=== PATIENT | male | born 1955 | race Two or more races ===

== ENCOUNTER 2020-07-31 12:41 | Emergency (ER) | payer MEDICARE ==
[~2020-07-31] VITALS: Ht 172.7 cm; Wt 72.8 kg
--- NOTE | 2020-07-31 13:15 | NUR ---
LATE ENTRY FOR 1315: PT PRESENTS TO ED WITH C/O COUGH AND DIARRHEA X 3 DAYS, SOB STARTING TODAY. PT IS A&O, RESPS EVEN AND UNLABORED, ABLE TO SPEAK IN FULL SENTENCES WITHOUT DIFFICULTY. PT PLACED ON ALL MONTIORS, CALL LIGHT IN REACH. AWAITING MD AND ORDERS.
[2020-07-31] MEDS ORDERED: CEFTRIAXONE PMX 1GM/50ML 50 ML IVPB ONE (13:30)
[2020-07-31] MEDS ORDERED: AZITHROMYCIN 500 MG in SODIUM CHLORIDE 0.9% 250 ML IV ONE (13:30)
--- NOTE | 2020-07-31 13:52 | NUR ---
pt's son's name is aron, phone [phone], number provided to call when pt is ready for pickup.
[2020-07-31] MEDS ORDERED: SODIUM CHLORIDE FLUSH 10ML SYR IVF ONE (14:00)
[2020-07-31] MEDS ORDERED: CEFTRIAXONE PMX 1GM/50ML 50 ML ONE (14:04)
--- NOTE | 2020-07-31 14:06 | NUR ---
PT MEETING SIRS CRITERIA OF TACHYCARDIA, TACHYPNEA AND PNEUMONIA PER URGENT CARE XRAY VISUAL DESIGN LEAD TODAY. SECOND BLOOD CULTURE ORDERED. PIV PLACED, BLOOD CX DRAWN WITH PIV START. BLOOD CX ALREADY DRAWN BY LAB. LAB NOTIFIED BLOOD CX FROM PIV START IS AT BEDSIDE. PT IS A&O, RESPS EVEN AND UNLABORED. SINUS TACH ON CARDIAC MONTIOR, NO ECTOPY NOTED. PT IS 92% AT THE LOWEST WHEN MONITORED ON ROOM AIR BY THIS RN, INFORMED. PT PLACED ON OXYGEN AT 4L/MIN BY MD FLEMING FOR PT COMFORT. INFORMED PT HAS C/O SOB ON ARRIVAL, PER MD NO EKG INDICATED AT THIS TIME.
[2020-07-31 14:09] LABS: BASOPHILS % (AUTO) 0 % (0-1); EOSINOPHILS % (AUTO) 0 % (1-7); LYMPHOCYTES % (AUTO) 5 % (22-44); MEAN CORPUSCULAR HEMOGLOBIN 27.8 pg (27.5-34.5); MEAN CORPUSCULAR HGB CONC 33.2 g/dL (33.2-36.2); MEAN PLATELET VOLUME 7.8 fL (7.4-10.4); MONOCYTES % (AUTO) 4 % (2-9); NEUTROPHILS % (AUTO) 91 % (42-75); PLATELET COUNT 227 x10^3/uL (130-400); RED BLOOD COUNT 4.93 x10^6/uL (4.38-5.82)
[2020-07-31 14:12] LABS: ALBUMIN 2.9 g/dL (3.4-5.0); ANION GAP 8 mmol/L (5-15); CALCIUM 8.8 mg/dL (8.5-10.1); CHLORIDE 103 mmol/L (98-107); CREATININE 0.99 mg/dL (0.7-1.3)
[2020-07-31 14:17] LABS: MD NO
--- NOTE | 2020-07-31 14:20 | NUR ---
rocephin gtt initiated after blood cx drawn x 2.
--- NOTE | 2020-07-31 15:00 | NUR ---
rocephin gtt completed, zithromycin gtt initiated. pt is a&ox4, resps even and unlabored speaking in full sentences without difficulty. pt is sinus tach rate 90s with no ectopy noted. pt denies pain. juice provided per pt request. pt to be discharged after zithromax infusion.
--- NOTE | 2020-07-31 16:23 | NUR ---
OXYGEN DISCONTINUED FOR OBSERVATION OVER LAST 30 MIN, PT'S SPO2 IS 90-92% ON ROOM AIR. RESPIRATORY RATE IS 30-45, SHALLOW BUT NO USE OF ACCESSORY MUSCLES. PT DENIES SOB. MARIE FLEMING NOTIFIED. STATES SHE OFFERED ADMISSION TO PT, PT AND FAMILY DECLINED ADMIT. RN INSTRUCTED TO DISCHARGE PT.
[2020-07-31 16:51] VITALS: BP 131/77
--- NOTE | 2020-07-31 17:00 | NUR ---
PT AMBULATED AROUND UNIT WITH CONTINUOUS PULSE OXYMETRY MONITORING, SPO2 DROPPED LOW 90% ON ROOM AIR WITH AMBULATION. PT HAD NO S/SX RESPIRATORY DISTRESS DURING OR POST AMBULATION. PT IS A&O, RESPS EVEN AND UNLABORED, NO COMPLAINT UPON DISCHARGE. AZITHROMYCIN INFUSION COMPLETE, PIV DC'D WITH TIP INTACT. PT AND SON GIVEN DISCHARGE INSTRUCTIONS WITH RETURN CRITERIA AND ISOLATION GUIDELINES. PT AMBULATORY TO DC WITH STEADY GAIT, SON ACCOMPANYING TO DRIVE PT HOME.
== END 2020-07-31 17:01 | disposition home or self-care (01) ==
LOC: ED 16:30
DX: J18.9 Pneumonia, unspecified organism (principal)
CPT/HCPCS: 36415; 80048; 82040; 83605; 85025; 87040; 96365; 96367; 99284; J0456; J0696; J7050